=== PATIENT | female | born 1985 | race Caucasian/White ===

== ENCOUNTER 2018-10-29 23:29 | Emergency (ER) | payer SELFPAY ==
[2018-10-29 23:40] VITALS: BP 164/97; PULSE 107; RESP 20; TEMP 36.5; O2SAT 93
--- NOTE | 2018-10-30 00:04 | DI.RAD_ITS ---
SYMPTOM/DIAGNOSIS: CHEST PAIN, COUGH PA AND LATERAL CHEST: The heart size is normal. The exam is somewhat limited by the patient's body habitus. No infiltrate or effusion is seen. There is no evidence of a pneumothorax. IMPRESSION: Negative chest xray.
--- NOTE | 2018-10-30 00:15 | ED.GENADUL_ITS ---
Discharge Plan Disposition Patient Disposition: HOME Condition: Good Discharge Details Chief Complaint: RespSymp Clinical Impression: Bullous myringitis, Left-sided chest wall pain Primary Care Provider: Sintia,Local ED Provider: Jatinder Liz and New Rx's Prescriptions: New azithromycin 250 mg Tablet 250 mg PO DAILY Qty: 4 RF: 0 ibuprofen [IBU] 600 mg Tablet 600 mg PO TID Qty: 15 RF: 0 Continued fluoxetine [Prozac] 20 mg Capsule 20 mg PO DAILY RF: 0 Discharge Instructions Instructions: Otitis Media (ED), Chest Wall Pain (ED) Additional Instructions: Rest over the weekend and drink plenty of fluids. Take the rest of your antibiotic as directed. Use Motrin as needed for pain. Follow-up with primary care next week if not better. Return to the emergency department for high fever, difficulty breathing, worsening pain, other concerns. Referrals: Primary Care Provider [Outside] Medical Decision Making Patient presents with left anterior lateral rib pain after coughing. She has been ill for a couple weeks now. She is not short of breath. Initial heart rate was a little tachycardic but on re-eval had dropped into the high 80s/low 90s. Saturations varied anywhere from 94% to 98%. Her lungs are clear. She does have evidence of bilateral bullous myringitis. I am not overly concerned with her chest pain. It is clearly temporally related to a coughing spasm and fit. I do not suspect that this is cardiac in nature. I do not suspect dissection. I do not suspect pulmonary embolus and she is PERC negative. Chest x-ray is obtained and there is no evidence of pneumothorax. Patient will be pl aced on a azithromycin for her bullous myringitis. Motrin for her chest pain. Discharge home follow-up with primary care next week if not better. Return to ED if high fever, increasing shortness of breath, worsening chest pain, other concerns. HPI General Mode of arrival: ambulatory . Date/Time Provider Initiated Documentation: 10/30/18 00:04 . Limitations to Documentation: no limitations . Information obtained by: patient . HPI Narrative: Patient presents to ED with complaints of 2 weeks of URI symptoms. She has been having increasing cough. Yannick had a coughing fit and felt pain in the left lower chest after this. She does not really feel short of breath. She has pain if she coughs or takes a deep breath. She started out with sinus pressure and congestion 2 weeks ago. It progressed to a chest cold. She has had sweats and chills but has no thermometer to take her temperature. In the last couple of days she developed bilateral ear pain. She is a smoker but has not been smoking since she has been ill because it makes her cough. There have been no rashes. She has no joint pain or body pain. She presents because of the severe chest pain from coughing. Related Data Home Medications Medication Instructions Recorded Confirmed fluoxetine [Prozac] 20 mg PO DAILY 10/29/18 10/29/18 azithromycin 250 mg PO DAILY #4 tab 10/30/18 ibuprofen [IBU] 600 mg PO TID #15 tab 10/30/18 Previous Rx's Medication Instructions Recorded azithromycin 250 mg PO DAILY #4 tab 10/30/18 ibuprofen [IBU] 600 mg PO TID #15 tab 10/30/18 Allergies Allergy/AdvReac Type Severity Reaction Status Date / Time No Known Allergies Allergy Unverified 10/29/18 23:47 General Stated Complaint: RespSymp NIRAJ: 4 Review of Systems Constitutional Reports chills, Reports excessive sweating, Denies fatigue, Denies fever(s), Denies headache(s), Reports malaise and Denies weakness Eyes Denies eye discharge and Denies eye pain ENT Denies vertigo, Reports otalgia, Denies headache(s), Reports nasal congestion, Reports nasal discharge, Denies neck pain, Denies sinus pain and Denies sore throat Cardiovascular Reports chest pain (left lower anterior with cough, deep breath), Denies syncope and Denies dyspnea Respiratory Reports cough, Denies hemoptysis and Denies dyspnea Gastrointestinal Denies abdominal pain, Denies nausea and Denies vomiting Genitourinary Denies hematuria, Denies dysuria, Denies pelvic pain and Denies flank pain Musculoskeletal Denies back pain, Denies neck pain and Denies numbness Integumentary/Breasts Denies rash Neurologic Denies vertigo, Denies syncope, Denies headache(s), Denies numbness and Denies weakness Endocrine Reports excessive sweating and Denies fatigue [facility] Medical History Obesities, morbid (Chronic) Surgical History S/P cholecystectomy (Inactive) Social History Smoking/Tobacco Use Status: Current every day Exam Const General: cooperative, comfortable and no acute distress Nutritional Appearance: obese morbidly obese Orientation: alert and oriented x3 [facility] Head: normocephalic and atraumatic Ears: external ears normal and TM abnormal bulging, bullous and erythematous General nose exam: no nasal discharge Face and sinus: normal facial exam Mouth: oropharynx normal Throat: posterior oropharynx normal Eyes Conjunctivae: conjunctivae normal Pupils: PERRL EOM: EOM intact bilaterally Neck Neck: no lymphadenopathy, trachea midline and supple Chest Chest: tenderness rib (left lower anterior/lateral) Resp Effort & Inspection: normal respiratory effort Auscultation: clear to auscultation bilaterally, no rales, no rhonchi and no wheezes Cardio Rate: regular rate Rhythm: regular rhythm Heart Sounds: S1 normal and S2 normal Skin Rashes: no rashes Neuro General: alert, oriented x3, no focal motor deficits and CN's II-XI intact bilaterally Extrem General: no calf tenderness Course Vital Signs Temperature 97.7 F 10/29/18 23:40 Pulse 107 H 10/29/18 23:40 Respiratory Rate 20 10/29/18 23:40 Blood Pressure 164/97 H 10/29/18 23:40 Pulse Oximetry 93 L 10/29/18 23:40 Temperature 97.7 F 10/29/18 23:40 Pulse 107 H 10/29/18 23:40 Respiratory Rate 20 10/29/18 23:40 Respiratory Effort 10/29/18 23:45 Respiratory Depth Normal 10/29/18 23:45 Blood Pressure 164/97 H 10/29/18 23:40 Pulse Oximetry 93 L 10/29/18 23:40 Oxygen Delivery Method Room Air 10/29/18 23:40 Oxygen Flow Rate 0 10/29/18 23:40 Pain Level 5 10/29/18 23:40
--- NOTE | 2018-10-30 01:16 | DI.VRAD_ITS ---
EXAM: XR Chest, 2 Views EXAM DATE/TIME: 10/30/2018 12:06 AM CLINICAL HISTORY: 33 years old, female; Signs and symptoms; Other: Cough x 2 weeks, left lower anterior cp tonight TECHNIQUE: XR of the chest, 2 views. COMPARISON: No relevant prior studies available. FINDINGS: There are no old studies available for comparison. The lungs are clear of infiltrate. There are no pleural effusions or pneumothorax. The heart size and pulmonary vascularity are normal. There are degenerative changes of the spine. IMPRESSION: No active disease. Dictated and Authenticated by: Donato Holland MD. Ordering:FUAD Tobias MD
[2018-10-30] MEDS: Azithromycin 250 MG TAB 500 MG PO (01:40)
[2018-10-30] MEDS: Ibuprofen 600 MG TAB PO (01:40)
== END 2018-10-30 01:55 | disposition home or self-care (01) ==
PROVIDERS: Emergency Provider Emergency Medicine
DX: H73.013 Bullous myringitis, bilateral (principal); R07.89 Other chest pain; F17.210 Nicotine dependence, cigarettes, uncomplicated
CPT/HCPCS: 99283; 71046